=== PATIENT | male | born 1990 | race Caucasian/White ===

== ENCOUNTER 2017-04-02 05:24 | Emergency (ER) | payer MEDICAID ==
[2017-04-02 09:26] VITALS: BP 115/65
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
== END 2017-04-02 09:26 | disposition home or self-care (01) ==
LOC: ED 05:24
DX: L02.416 Cutaneous abscess of left lower limb (principal)
CPT/HCPCS: J3010; Q0162

== ENCOUNTER 2017-04-03 06:27 | Emergency (ER) | payer MEDICAID ==
[~2017-04-03] VITALS: Ht 180.3 cm; Wt 64.0 kg
[2017-04-03 07:32] VITALS: BP 126/71
== END 2017-04-03 07:32 | disposition home or self-care (01) ==
LOC: ED 06:27
DX: Z48.01 Encounter for change or removal of surgical wound dressing (principal)
CPT/HCPCS: J3010; Q0162

== ENCOUNTER 2017-04-04 15:27 | Emergency (ER) | payer MEDICAID ==
[2017-04-04 17:11] VITALS: BP 118/65
== END 2017-04-04 17:11 | disposition home or self-care (01) ==
LOC: ED 15:27
DX: Z48.00 Encounter for change or removal of nonsurgical wound dressing (principal)
CPT/HCPCS: J1885

== ENCOUNTER 2017-06-23 19:25 | Emergency (ER) | payer SELFPAY ==
[2017-06-23 19:54] VITALS: BP 136/84
== END 2017-06-23 21:04 | disposition left against medical advice (07) ==
LOC: ED 19:25
DX: Z53.21 Procedure and treatment not carried out due to patient leaving prior to being seen by health care provider (principal)

== ENCOUNTER 2018-02-06 21:46 | Emergency (ER) | payer SELFPAY | END 2018-02-06 22:16 | disposition left against medical advice (07) | LOC: ED 21:46 | DX: Z53.21 Procedure and treatment not carried out due to patient leaving prior to being seen by health care provider (principal) ==

== ENCOUNTER 2018-02-06 23:28 | Emergency (ER) | payer SELFPAY ==
[~2018-02-06] VITALS: Ht 180.3 cm; Wt 69.4 kg
[2018-02-07 01:18] VITALS: BP 110/77
== END 2018-02-07 01:18 | disposition home or self-care (01) ==
LOC: ED 23:28
DX: L03.115 Cellulitis of right lower limb (principal)
CPT/HCPCS: J2001; J7512

== ENCOUNTER 2018-02-26 21:57 | Emergency (ER) | payer MEDICAID ==
[~2018-02-26] VITALS: Ht 180.3 cm; Wt 69.9 kg
[2018-02-26 22:10] VITALS: Ht 180.3 cm; Wt 69.9 kg
[2018-02-26 22:58] VITALS: BP 128/88
== END 2018-02-26 22:58 | disposition home or self-care (01) ==
LOC: ED 21:57
DX: L02.415 Cutaneous abscess of right lower limb (principal); F41.9 Anxiety disorder, unspecified

== ENCOUNTER 2019-04-13 01:31 | Inpatient (IN) | payer MEDICAID ==
[~2019-04-13] VITALS: Ht 180.3 cm; Wt 76.7 kg
[2019-04-13 01:35] VITALS: Ht 180.3 cm; Wt 76.7 kg
--- NOTE | 2019-04-13 02:00 | NUR ---
PATIENT SEEN WITH COMPLAINT OF REDNESS /SWELLING OF THE RIGHT THIGH. SEEN WITH LARGE AREA OF REDNESS AND SWELLING ON THE RT UPPER THIGH , AREA ID HARD AND PATIENT C/O PAIN. WAITING FOR MD EVALUATION.
--- NOTE | 2019-04-13 02:30 | NUR ---
SEVERAL UNSUCCESSFUL ATTEMPTS WAS MADE TO INSERT A SALINE LOCK. MD NOTIFIED. MD USE ULTRASOUND TO INSERT SALINE LOCK ON THE RIGHT AC.
[2019-04-13 02:37] LABS: BASOPHIL % 0.4 % (0-2); PLATELET COUNT 376 x10^3mcL (130-400)
[2019-04-13 02:38] LABS: RED CELL DISTRIBUTION WIDTH 14.7 % (11.5-14.5)
[2019-04-13 02:44] LABS: CALCIUM 7.9 mg/dL (8.5-10.1); CARBON DIOXIDE 28.1 mmol/L (21-32); CHLORIDE SERUM 98 mmol/L (98-107); CREATININE SERUM 0.7 mg/dL (0.7-1.3); GFR1 > 60 mL/min; GLUCOSE SERUM 120 mg/dL (74-106); SODIUM SERUM 133 mmol/L (136-145)
[2019-04-13 02:51] LABS: ALBUMIN 2.7 g/dL (3.4-5.0); ALKALINE PHOSPHATASE 105 U/L (46-116); ALT/SGPT 22 U/L (16-63); AST/SGOT 22 U/L (15-37); BILIRUBIN TOTAL 0.4 mg/dL (0.20-1.00); TOTAL PROTEIN, SERUM 7.3 g/dL (6.4-8.2)
--- NOTE | 2019-04-13 03:53 | NUR ---
PATIENT WENT FOR CT SCAN
--- NOTE | 2019-04-13 04:01 | NUR ---
PATIENT RETURN FROM CT WITH COMPLAIN OF NAUSEA. ZOFRAN WAS GIVEN PROIR TO GOING TO CT. FLUID AND ANTIBIOTIC IS INFUSING
--- NOTE | 2019-04-13 06:27 | NUR ---
Patient is admitted, resident at the bedside.
--- NOTE | 2019-04-13 07:40 | NUR ---
RECEIVED REPORT FROM BITA MARTINI FOR PT. PT TEARFUL AND TACHYCARDIC ON MONITORS AT 118 BPM. PT STS HE WANTS TO GO TO SURGERY FOR HIS LEG. MOM IS AT BEDSIDE
[2019-04-13 07:42] LABS: MAGNESIUM 1.9 mg/dL (1.8-2.4)
[2019-04-13 07:44] LABS: CHOLESTEROL/HDL RATIO 3.2
--- NOTE | 2019-04-13 07:45 | NUR ---
GROUND DEFENCE OFFICER RESIDENT NEENA WAS PAGED AND INFORMED PT REQUESTING MORE PAIN MEDICATIONS. PER DR CHAUDHARY GIVE PT NORCO TAB AND FOLLOW MORPHINE PROTOCOL FOR PT BUT THERE WILL BE NO OTHER NEW ORDERS.
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
--- NOTE | 2019-04-13 07:50 | NUR ---
DR SPARROW AT BEDSIDE TO SPEAK WITH PT.
[2019-04-13 08:02] LABS: microscopic required? NO
--- NOTE | 2019-04-13 08:05 | NUR ---
PT REFUSED NORCO "I DON'T WANT YOUR NORCO."
--- NOTE | 2019-04-13 08:28 | NUR ---
CALLED OR AND SPOKE WITH LUIS ENRIQUE WHO STATED PT IS NOT ON THE SCHEDULE FOR SURGERY. INFORMED [facility] NURSE BRANDY OF SAME. PER LUIS ENRIQUE LANE IS IN SURGERY FOR ANOTHER PATIENT AT THIS TIME.
[2019-04-13 09:01] VITALS: BP 123/66
[2019-04-13 09:06] LABS: urine erythrocyte NEGATIVE (NEGATIVE)
[2019-04-13 09:14] LABS: AMPHETAMINE QUAL UR POSITIVE (See below)
--- NOTE | 2019-04-13 09:24 | NUR ---
RECEIVED PT FROM [facility] AT 0845. PT AA/OX4. C/O OF PAIN TO RLE WITH ERYTHEMA/NONPITTING EDEMA. RADIATING TO RLQ ABD. PT STATES, "IT'S SPREADING, IT'S GETTING WORSE. I CAN'T EVEN WALK NOW. I WAS WALKING WHEN I FIRST CAME HERE." PT GIVEN IV PAIN MED AND PO PAIN MED IN ED. REPORTS NO RELIEF FROM PAIN MEDS. RATES PAIN TO RLE 10/10, CONTINOUS, ACHING, WORSE WITH MOVEMENT. NO SOB ON ROOM AIR. NO CHEST PAIN. MED-SURG. NO MERRILL. NO DIZZINESS. NO N/V. NO CHILLS. VS STABLE. IV WNL TO RAC, 20 GAUGE. PATENT AND FLUSHES WELL. IV FLUIDS FLOWING. ORIENTED TO SURROUNDINGS. SIDE RAILS UP X2. BED IN LOW POSITION. INTSTRUCTED TO USE CALL LIGHT TO CALL FOR ASSISTANCE PRN. VERBALIZED UNDERSTANDING. WILL CONTINUE TO MONITOR.
--- NOTE | 2019-04-13 11:01 | NUR ---
Discount pharmacy card and list to low cost medical clinics given to patient by Vivien.
--- NOTE | 2019-04-13 12:45 | NUR ---
PT TAKEN BY FABIAN TO OR BY ALINA DUDLEY. NO S/S OF ACUTE DISTRESS. NO COMPLAINT OF PAIN. NO SOB ON ROOM AIR. CHECKLIST COMPLETE. ELMER WIPES COMPLETE. AA/OX4. CONSENT IN CHART. IV WNL TO RAC, PATENT. SALINE LOCKED. BELONGINGS IN PT CLOSET. ENDORSED TO HEAT TREATER HEADVINI WILBURN.
[2019-04-13 14:40] LABS: BASOPHIL % 0.2 % (0-2); PLATELET COUNT 318 x10^3mcL (130-400)
[2019-04-13 14:44] LABS: RED CELL DISTRIBUTION WIDTH 14.7 % (11.5-14.5)
[2019-04-13 15:10] VITALS: BP 117/76
--- NOTE | 2019-04-13 15:10 | NUR ---
PT BROUGHT BACK FROM PACU, S/P RLE FASCIOTOMY. DRESSING TO RLE CDI. NO DRAINAGE NOTED. REINFORCED BY STAFF HOME THERAPY RNVINI ROMERO. NO S/S OF ACUTE DISTRESS. VS STABLE. NO SOB ON ROOM AIR. NO S/S OF PAIN. RESTING IN BED WITH BOTH EYES CLOSED. BED IN LOW POSITION. CALL LIGHT WITHIN REACH. WILL CONTINUE TO MONITOR.
[2019-04-13 15:21] VITALS: BP 117/76
--- NOTE | 2019-04-13 17:45 | NUR ---
LATE ENTRY, OCCURRED AT 1520, PT RESTING IN BED WITH BOTH EYES CLOSED. NO S/S OF ACUTE DISTRESS. NO S/S OF PAIN. ASSESSED PT RLE AT SURGICAL SITE, DRESSINGS APPEARED SATURATED WITH BRIGHT RED BLOOD. CALLED DR. LANE CONTACTED. RECEIVED TELEPHONE ORDER TO CHANGE OUTTER SURGICAL DRESSINGS: ABD PADS, WRAPPED WITH 6 INCH GAUZE, KEEP SURGICAL DRESSING IN PLACE. ORDER REPEATED BACK TO PHYSICIAN. AT THIS TIME 1530, PT AWOKE, WANTED TO LEAVE HOSPITAL. REFUSED DRESSING CHANGE. BECAME AGITATED, YELLING "GIVE ME MY STUFF, I'M LEAVING". DR. LOBO AT BEDSIDE TALKING TO PATIENT. DISCUSSED RISKS OF LEAVING, INCLUDING RISK OF INFECTION, BLEEDING, AND . PT REFUSED TO SIGN AMA FORM. PT BEGAN YELLING AT DR. LOBO STATING, "I DON'T, I DON'T FUCKING CARE. YOU'RE A LITTLE BITCH. GET OUT OF MY FACE" PT CRUMPLED AMA FORM AND BEGAN TO PROCEED TO GET OOB. SECURITY NOTIFIED IMMEDIATELY, SECURITY AT BEDSIDE. PT STATES, "YOU GUYS TOOK FOREVER TO TAKE ME TO SURGERY, I COULD WALK WHEN I CAME HERE AND I CAN'T EVEN WALK NOW." IV REMOVED FROM RAC, CATHETER IN TACT. PRESSURE APPLIED. PT AA/OX4. NO FEVER, NO CHILLS. NO N/V. PT APPEARS TO BE IN DISCOMFORT, GRIMACING. DRESSING REINFORCED WITH PT PERMISSION, REFUSED DRESSING CHANGE. PT MOTHER AND SISTER AT BEDSIDE. PT YELLING AT MOTHER AND SISTER, CONTINUED TO REFUSE TO STAY. ALL BELONGINGS WITH PATIENT. TAKEN TO LOBBY BY WHEELCHAIR BY EVERETT SHARP AND ESCORTED BY SECURITY.
== END 2019-04-13 17:42 | disposition left against medical advice (07) | DRG 710 ==
LOC: ED 01:31 → MU 07:54
PROVIDERS: Anesthesiology; Emergency Medicine; Surgery; ADMIT General Practice
PROC: 0J9L0ZZ Drainage of Right Upper Leg Subcutaneous Tissue and Fascia, Open Approach (ICD-10-PCS; principal; 2019-04-13 14:00)
DX: A41.9 Sepsis, unspecified organism (principal); M72.6 Necrotizing fasciitis; E43 Unspecified severe protein-calorie malnutrition; E87.1 Hypo-osmolality and hyponatremia; F11.10 Opioid abuse, uncomplicated; Z59.0 Homelessness; Z68.25 Body mass index [BMI] 25.0-25.9, adult
CPT/HCPCS: 83880; C9113; G0378; J1170; J1720; J1885; J2001; J2250; J2270; J2405; J2543; J2704; J3010; J3370; J7030; J7120; Q0092; Q9967